=== PATIENT | female | born 2000 | race Hispanic/Latino ===

== ENCOUNTER 2019-06-30 09:37 | Outpatient (CLI) | payer OTHER ==
--- NOTE | 2019-06-30 13:29 | MRI ---
MRI RIGHT ELBOW PERFORMED WITHOUT CONTRAST ENHANCEMENT: Date: 06/30/2019 HISTORY: Elbow pain when patient does handstands or back handspring. FINDINGS: There is a small elbow joint effusion, which is larger than typically seen. Ulnar collateral ligament is intact. The lateral collateral ligament and LUCL appear normal. Common extensor tendon is normal. There are edema changes in the proximal aspect of the flexor digitorum superficialis muscle and some very subtle edema change of the pronator teres. The edema changes related to the flexor digitorum sup erficial muscle extend to the origin on the medial epicondyle. The radiocapitellar joint space is normal. No articular bodies are seen. No evidence of osteochondrit is. The biceps and triceps tendons are normal. IMPRESSION: 1. Small elbow joint effusion, still slightly greater than typically seen. 2. Muscle strain at the level of the common flexor tendon origin. Specifically, these changes are mo st pronounced at the level of the flexor digitorum superficialis muscle. POS: [facility]
== END 2019-06-30 09:38 | disposition home or self-care (01) ==
LOC: BICMRI 09:37
PROVIDERS: ATTEND Orthopaedic Surgery
DX: M25.521 Pain in right elbow (principal); M25.421 Effusion, right elbow; S56.511A Strain of other extensor muscle, fascia and tendon at forearm level, right arm, initial encounter